=== PATIENT | male | born 1950 | race Caucasian/White ===

== ENCOUNTER 2017-07-18 16:16 | Emergency (ER) | payer MEDICARE, MEDICAID ==
[~2017-07-18] VITALS: Ht 180.3 cm; Wt 90.7 kg
[2017-07-18 16:43] LABS: BASO # 0.1 10*3/uL (0.0-0.1); BASO % 0.8 % (0.0-1.0); EOS # 0.4 10*3/uL (0.0-0.4); EOS % 4.2 % (1.0-4.0); HEMATOCRIT 49.2 % (42.0-52.0); HEMOGLOBIN 15.5 g/dl (14.0-18.0); LYMPH # 2.6 10*3/uL (1.3-4.4); LYMPH % 29.3 % (27.0-41.0); MEAN CELL VOLUME 85.1 fl (80.0-94.0); MEAN CORPUSCULAR HGB 26.8 pg (27.0-31.0); MEAN CORPUSCULAR HGB CONC 31.5 g/dl (33.0-37.0); MONO # 0.9 10*3/uL (0.1-1.0); MONO % 10.3 % (3.0-9.0); NEUT # 4.8 10*3/uL (2.3-7.9); NEUT % 54.9 % (47.0-73.0); PLATELET COUNT AUTOMATED 141 10*3/uL (130-400); RED BLOOD COUNT 5.78 10*6/uL (4.50-5.90); RED CELL DISTRI WIDTH 15.7 % (0-14.5); WHITE BLOOD COUNT 8.8 10*3/uL (4.8-10.8)
[2017-07-18] MEDS ORDERED: ARICEPT5 M1 PO (16:57)
[2017-07-18] MEDS ORDERED: DEPAKOTE500 MG PO (16:58)
[2017-07-18] MEDS ORDERED: ASPIRIN ADULT L81 MG PO (16:58)
[2017-07-18] MEDS ORDERED: VITAMIN D31000 UNI1 PO (16:58)
[2017-07-18] MEDS ORDERED: ATORVASTATIN CA40 M1 PO (16:58)
[2017-07-18] MEDS ORDERED: EFFEXOR XR37.5 M1 PO (16:59)
[2017-07-18] MEDS ORDERED: LASIX40 MG PO (16:59)
[2017-07-18] MEDS ORDERED: LOSARTAN POTASS25 M1 PO (16:59)
[2017-07-18 17:00] LABS: ALBUMIN 3.7 gm/dl (3.1-4.5); ALKALINE PHOSPHATASE 60 U/L (45-117); BUN 22 mg/dl (7-24); CHLORIDE 106 mmol/L (98-107); POTASSIUM 4.1 mmol/L (3.5-5.1); SGOT/AST 20 IU/L (3-35); SGPT/ALT 25 U/L (12-78); SODIUM 139 mmol/L (136-145); TOTAL PROTEIN 7.3 gm/dL (6.4-8.2); VALPROIC ACID (DEPAKENE) 40.6 ug/ml (50-100)
[2017-07-18] MEDS ORDERED: ATENOLOL25 MG PO (17:00)
[2017-07-18] MEDS ORDERED: TAB-A-VITE1 EACH PO (17:00)
[2017-07-18 17:01] LABS: ETHYL ALCOHOL < 3.0 mg/dl (<3)
[2017-07-18] MEDS ORDERED: COLACE100 MG PO (17:02)
[2017-07-18] MEDS ORDERED: 'KLONOPIN0.5 MG PO (17:02)
[2017-07-18 17:07] LABS: THYROID STIM HORMONE (HS) 0.959 uIU/ml (0.358-4.75)
[2017-07-18] MEDS ORDERED: DEPAKOTE250 MG PO (17:08)
[2017-07-18] MEDS ORDERED: NAPROSYN500 MG PO (17:09)
[2017-07-18] MEDS ORDERED: MILK OF MA400 MG/51 PO (17:10)
[2017-07-18 19:27] LABS: BILIRUBIN NEGATIVE (NEGATIVE); BLOOD TRACE-INTACT (NEGATIVE); CLARITY CLEAR (CLEAR); COLOR YELLOW (YELLOW); GLUCOSE NEGATIVE (NEGATIVE); KETONE NEGATIVE (NEGATIVE); LEUKO ESTERASE NEGATIVE (NEGATIVE); NITRITE NEGATIVE (NEGATIVE); SPECIFIC GRAVITY >= 1.030 (1.005-1.030)
[2017-07-18 19:33] LABS: BACTERIA 2+; EPITHELIAL CELLS 0-2; MUCOUS TRACE; RBC 0-2 rbc/hpf (0-2); WBC 0-2 wbc/hpf (0-5)
[2017-07-18 19:36] LABS: URINE AMPHETAMINES < 1000 (1000ng/ml); URINE BARBITURATES < 200 (200ng/ml); URINE BENZODIAZEPINES < 200 (200ng/ml); URINE CANNABINOIDS (THC) < 50 (50ng/ml); URINE COCAINE < 300 (300ng/ml); URINE METHADONE < 300 (300ng/ml); URINE OPIATES < 300 (300ng/ml)
[2017-07-18 19:37] LABS: URINE PHENCYCLIDINE < 25 (25ng/ml)
[2017-07-22] MEDS ORDERED: EXEL13.31 T (20:49)
[2017-07-22] MEDS ORDERED: CYMBALTA30 MG PO (20:52)
[2017-07-22] MEDS ORDERED: INVEGA3 MG PO (20:56)
[2017-07-22] MEDS ORDERED: ATIVAN1 MG PO (20:58)
[2017-07-22] MEDS ORDERED: ATIVAN2 MG/1 ML IM (20:59)
[2017-07-22] MEDS ORDERED: GEODON20 M1 IM (21:00)
== END 2017-07-18 19:40 | disposition other institution (70) ==
LOC: ED 16:16
PROVIDERS: Registered Nurse
DX: F03.91 Unspecified dementia, unspecified severity, with behavioral disturbance (principal); F63.81 Intermittent explosive disorder; I25.2 Old myocardial infarction; F20.9 Schizophrenia, unspecified; E78.5 Hyperlipidemia, unspecified; F41.1 Generalized anxiety disorder; I11.0 Hypertensive heart disease with heart failure; I50.9 Heart failure, unspecified; F17.200 Nicotine dependence, unspecified, uncomplicated; I48.91 Unspecified atrial fibrillation; F14.10 Cocaine abuse, uncomplicated; Z79.899 Other long term (current) drug therapy; Z79.82 Long term (current) use of aspirin; Z88.0 Allergy status to penicillin; Z88.8 Allergy status to other drugs, medicaments and biological substances

== ENCOUNTER 2017-07-22 21:18 | Inpatient (IN) | payer MEDICARE, MEDICAID ==
[~2017-07-22] VITALS: Ht 175.2 cm; Wt 113.4 kg
--- NOTE | ~2017-07-22 | CON ---
[place], [place] REPORT OF CONSULTATION NAME: BUDDY TIPTON UNIT #: [id number] ROOM: 523 DOCTOR: SHANIA GRAY MD BIRTHDATE: [birth year] DOS: 07/23/2017 CHIEF COMPLAINT: "Morning." SUMMARY OF THE VISIT: This is a 67-year-old white male known to me from multiple admissions to the [facility]. The patient had been admitted to the [facility] on July 18 for agitation and aggression at his long-term care facility. In the course of his treatment, he became exceedingly more lethargic and was found to have a significant bradycardia, so he was transferred to a medical floor for further monitoring. Since he has been admitted to the medical floor, his heart rate has been stable, running in the 80s and he has experienced no further symptomatology. MENTAL STATUS: He is alert and oriented to person, more than likely place, not to time. His responses tended to be short and simple and at times totally inappropriate to the questions asked of him. He tended to ramble at times and off into nonsense. There was no agitation or aggression. There was no symptom suggestive of hypomania or too. He does seem to be somewhat psychotic in his thought process. Memory is poor. DIAGNOSES: Schizoaffective disorder and intermittent explosive disorder. PLAN: Once you find him to be medically stable, I would be happy to readmit him back to the [facility] Unit for further stabilization, ultimately returning back to the long-term care facility of record. SHANIA GRAY MD CM:CONSTR:REPORT OF CONSULTATION 1022 07/23/17 1038 interface
[~2017-07-22 21:18] MED LIST: 'KLONOPIN0.5 MG PO; ARICEPT5 M1 PO; ASPIRIN ADULT L81 MG PO; ATENOLOL25 MG PO; ATIVAN1 MG PO; ATIVAN2 MG/1 ML IM; ATORVASTATIN CA40 M1 PO; COLACE100 MG PO; CYMBALTA30 MG PO; DEPAKOTE250 MG PO; DEPAKOTE500 MG PO; EFFEXOR XR37.5 M1 PO; EXEL13.31 T; GEODON20 M1 IM; INVEGA3 MG PO; LASIX40 MG PO; LOSARTAN POTASS25 M1 PO; MILK OF MA400 MG/51 PO; NAPROSYN500 MG PO; TAB-A-VITE1 EACH PO; VITAMIN D31000 UNI1 PO
[2017-07-22 22:20] VITALS: BP 120/82
[2017-07-23] VITALS: BP 135/86
[2017-07-23 05:48] LABS: ALBUMIN 3.6 gm/dl (3.1-4.5); ALKALINE PHOSPHATASE 51 U/L (45-117); BUN 19 mg/dl (7-24); CHLORIDE 105 mmol/L (98-107); CREATININE 0.81 mg/dL (0.70-1.30); PHOSPHOROUS 3.8 mg/dL (2.5-4.9); POTASSIUM 3.8 mmol/L (3.5-5.1); SGOT/AST 25 IU/L (3-35); SGPT/ALT 30 U/L (12-78); SODIUM 140 mmol/L (136-145)
[2017-07-23 05:59] LABS: BASO # 0.1 10*3/uL (0.0-0.1); BASO % 0.9 % (0.0-1.0); EOS # 0.4 10*3/uL (0.0-0.4); EOS % 3.4 % (1.0-4.0); HEMATOCRIT 46.3 % (42.0-52.0); HEMOGLOBIN 14.9 g/dl (14.0-18.0); LYMPH # 2.7 10*3/uL (1.3-4.4); MEAN CELL VOLUME 83.7 fl (80.0-94.0); MEAN CORPUSCULAR HGB 26.9 pg (27.0-31.0); MEAN CORPUSCULAR HGB CONC 32.2 g/dl (33.0-37.0); MEAN PLATELET VOLUME 11.5 fl (9.6-12.3); MONO # 1.4 10*3/uL (0.1-1.0); MONO % 13.3 % (3.0-9.0); NEUT # 5.8 10*3/uL (2.3-7.9); PLATELET COUNT AUTOMATED 127 10*3/uL (130-400); RED BLOOD COUNT 5.53 10*6/uL (4.50-5.90); RED CELL DISTRI WIDTH 15.9 % (0-14.5); WHITE BLOOD COUNT 10.3 10*3/uL (4.8-10.8)
[2017-07-23 08:00] VITALS: BP 110/80
[2017-07-23 12:00] VITALS: BP 100/52
[2017-07-23 16:00] VITALS: BP 149/85
[2017-07-23 20:00] VITALS: BP 136/70
[2017-07-24 04:00] VITALS: BP 139/93
[2017-07-24 07:28] LABS: BUN 19 mg/dl (7-24); CHLORIDE 104 mmol/L (98-107); CREATININE 0.83 mg/dL (0.70-1.30); POTASSIUM 3.8 mmol/L (3.5-5.1); SODIUM 140 mmol/L (136-145)
[2017-07-24 08:00] VITALS: BP 163/84
[2017-07-24 12:00] VITALS: BP 121/74
[2017-07-24] MEDS ORDERED: METOPROLOL SUCC25 M2 PO (14:06)
[2017-07-24] MEDS ORDERED: LISINOPRIL10 M1 PO (14:06)
[2017-07-24 16:00] VITALS: BP 154/93
[2017-07-25] MEDS ORDERED: TOPROL XL25 MG PO (06:46)
== END 2017-07-24 16:46 | disposition home health service (06) | DRG 308 ==
LOC: 5E 21:18
PROVIDERS: Internal Medicine; Internal Medicine Nephrology
DX: I49.3 Ventricular premature depolarization (principal); I50.21 Acute systolic (congestive) heart failure; F01.51 Vascular dementia, unspecified severity, with behavioral disturbance; E66.01 Morbid (severe) obesity due to excess calories; I48.0 Paroxysmal atrial fibrillation; E87.70 Fluid overload, unspecified; I11.0 Hypertensive heart disease with heart failure; F63.81 Intermittent explosive disorder; F20.9 Schizophrenia, unspecified; D72.810 Lymphocytopenia; Z66 Do not resuscitate; Z51.5 Encounter for palliative care; R73.9 Hyperglycemia, unspecified; E78.5 Hyperlipidemia, unspecified; R56.9 Unspecified convulsions; I25.10 Atherosclerotic heart disease of native coronary artery without angina pectoris; R73.03 Prediabetes; I34.0 Nonrheumatic mitral (valve) insufficiency; F41.1 Generalized anxiety disorder; Z72.0 Tobacco use; Z86.73 Personal history of transient ischemic attack (TIA), and cerebral infarction without residual deficits; Z88.0 Allergy status to penicillin; Z88.8 Allergy status to other drugs, medicaments and biological substances; Z79.899 Other long term (current) drug therapy; Z79.82 Long term (current) use of aspirin; I25.2 Old myocardial infarction; Z68.36 Body mass index [BMI] 36.0-36.9, adult

== ENCOUNTER 2017-07-24 17:36 | Inpatient (IN) | payer MEDICARE, MEDICAID ==
[~2017-07-24] VITALS: Ht 175.2 cm; Wt 113.4 kg
--- NOTE | ~2017-07-24 | DS ---
[place], [place] DISCHARGE SUMMARY NAME: BUDDY TIPTON UNIT #: [id number] ROOM: 310 DOCTOR: SHANIA GRAY MD BIRTHDATE: [birth year] DOS: 07/28/2017 CHIEF COMPLAINT: "Morning, I do not want to get up." HISTORY OF PRESENT ILLNESS: This is a 67-year-old white male known to me from his previous admission to the [facility] as well as his stay at [facility]. The patient was initially admitted to the psych unit due to extreme mood lability and verbal and physical aggression; however, he became significantly bradycardic and was transferred off the psychiatric unit to a medical floor for further evaluation. While there, he did have a cardiology service consult and an echo was obtained showing global hypokinesis. Cardiac enzymes were cycled and were negative. He continued to exhibit marked mood issues and continued to be agitated, so he was transferred back to the [facility] for further psychiatric stabilization. PAST MEDICAL HISTORY: Remarkable for atrial fibrillation, CVA, congestive heart failure, coronary artery disease, hypertension, hyperlipidemia, myocardial infarction, obesity, prediabetes, seizure disorder, vitamin D deficiency, dementia, generalized anxiety disorder, and a past history of cocaine abuse. SUMMARY OF HOSPITAL COURSE: The patient was readmitted to the psychiatric unit where his Exelon patch was maxed out to its highest dose of 13.3 mg a day, Namenda 5 mg a day was added to augment the effectiveness of the Exelon. He was maintained on Cymbalta 30 mg at bedtime, both as an antidepressant, a sleep aid and to help with pain. Namenda was rapidly titrated up to its maximum dose of 15 mg a day. With this combination of medication, the patient cleared dramatically. He became much more pleasant and conversant. He was no longer physically or verbally aggressive. He was able to engage in unit activities both individual and group. He was able to attend to his ADLs much more appropriately. He had improved sufficiently enough by July 28 to return to [facility] where I will follow him upon return. MENTAL STATUS AT DISCHARGE: The patient is alert and oriented to self, possibly place, but not time. Mood does seem to be euthymic. Affect is appropriate. There is no too or hypomania. No gross psychotic symptoms. He does process at times slowly and short term memory can be poor. FINAL DIAGNOSES: Major depression, recurrent, severe, and Alzheimer dementia. PLAN: The patient is to return to [facility]. He is medically and psychiatrically stable. [facility] is looking to meet his biopsychosocial needs as well. All of his prescriptions [facility] except for vitamin D, which was printed and will be sent with him. [place], [place] DISCHARGE SUMMARY NAME: BUDDY TIPTON UNIT #: [id number] ROOM: 310 DOCTOR: SHANIA GRAY MD BIRTHDATE: [birth year] SHANIA GRAY MD CM:DISCHARG [id number] SHANIA GRAY MD 07/28/17 1014 interface
--- NOTE | ~2017-07-24 | PR ---
[place], [place] PROGRESS NOTE NAME: BUDDY TIPTON UNIT #: [id number] ROOM: 310 DOCTOR: SHANIA GRAY MD BIRTHDATE: [birth year] DOS: 07/25/2017 CHIEF COMPLAINT: "When do I get to go home. I hope I go home soon." SUMMARY OF THE VISIT: The patient was interviewed in the dining area. He was bright and alert and engaging in conversation readily with me. He did report that he feels better and is anxious to go home. Nurses, however, report they have noticed that he has been wheezing a little bit and complaining of some shortness of breath. His white count is also elevated at 11.9. MENTAL STATUS: The patient is alert and oriented with some time gaps. Mood does seem to be trending towards euthymia. Affect is more appropriate. There is no too or hypomania. There are no psychotic symptoms. Memory for short term events is poor, otherwise, he is intact. PLAN: I will increase Namenda to 5 mg b.i.d. as I targeted 10 mg twice daily dosing to maximize potential benefit. Given his elevated white count and shortness of breath, I will check a chest x-ray and a UA just to make certain we are not dealing with an infectious process. I will defer to the hospitalist for any further workup and treatment. SHANIA GRAY MD CM:PNTRANS [id number] SHANIA GRAY MD 07/26/17 1026 interface
--- NOTE | ~2017-07-24 | PR ---
[place], [place] PROGRESS NOTE NAME: BUDDY TIPTON UNIT #: [id number] ROOM: 310 DOCTOR: SHANIA GRYA MD BIRTHDATE: [birth year] DOS: 07/27/2017 CHIEF COMPLAINT: "I want to be able to go home soon." SUMMARY OF THE VISIT: The patient was interviewed in the dining area. He engaged readily in conversation. He smiled upon approach and stated that he was ready for discharge. He notes that he is sleeping well and eating well and his mood does seem to be trending significantly towards improvement. He has been much more compliant and less agitated. He is tolerating the current medication regimen well. MENTAL STATUS: He is alert and oriented to self, possibly place, but not time. Mood does seem to be strongly trending towards euthymia. He is much more pleasant and cooperative. He engages readily in conversation. He offers no complaints. There is no too or hypomania. There are no overt auditory or visual hallucinations. No delusions, no paranoia. Short term memory has gaps, otherwise he is intact. PLAN: I will increase his Namenda from 5 mg twice a day to 10 mg in the morning and 5 mg at night, continue to engage in individual and mejias milieu activity with the plan to discharge to the least restrictive environment when psychiatrically stable. SHANIA GRAY MD CM:PNTRANS 1 SHANIA GRAY MD 07/27/1712 interface
--- NOTE | ~2017-07-24 | WRIGHTHP ---
[place], [place] PATIENT HISTORY AND PHYSICAL EXAM NAME: BUDDY TIPTON UNIT #: [id number] ROOM: 310 DOCTOR: SHANIA GRAY MD BIRTHDATE: [birth year] DOS: 07/25/2017 PSYCHIATRIC EVALUATION CHIEF COMPLAINT: "Morning. I don't want to get up." HISTORY OF PRESENT ILLNESS: This is a 67-year-old white male known to me from a previous admission here to the [facility] as well as his stay at [facility]. The patient was initially admitted here due to extreme mood lability and verbal and physical aggression; however, he became significantly bradycardic and required transfer off of the unit on to a medical floor. While there, he did have a Cardiology service consult and an echo was obtained, showing global hypokinesis. Cardiac enzymes were cycled and were negative. He continues to exhibit significant mood issues, becoming increasingly agitated at times, requiring redirection and possible PRNs. He is readmitted now to stabilize on medication to further engage in individual and mejias milieu activity with the plan to return back to the long-term care facility when stable. PAST MEDICAL HISTORY: Remarkable for atrial fibrillation and CVA, congestive heart failure, coronary artery disease, hypertension, hyperlipidemia, myocardial infarction, obesity, prediabetes, seizure disorder, vitamin D deficiency, cocaine abuse, dementia, generalized anxiety disorder. MENTAL STATUS: The patient is alert and oriented to self. His responses this morning were short and simple at times, he ignored me. Other times, he would answer appropriately. He tended to drift off into responses and at times like I had previously said that they were nonsensical. There was no agitation; however, this morning, no overt auditory or visual hallucinations. He does process extremely slow and short term memory is exceedingly poor. PLAN: I will go ahead and augment the Exelon patch with Namenda 5 mg a day, planning to gradually titrate this upward as needed and as tolerated. We will continue to engage in individual and mejias milieu activity with the ultimate plan to return back to [facility] with similar placement when stable. [place], [place] PATIENT HISTORY AND PHYSICAL EXAM NAME: BUDDY TIPTON UNIT #: [id number] ROOM: 310 DOCTOR: SHANIA GRAY MD BIRTHDATE: [birth year] SHANIA GRAY MD CM:CHANCE:PATIENT HISTORY AND PHYSICAL EXAMINATION [id number] SHANIA GRAY MD 07/25/17 0853 interface
[2017-07-24 16:55] VITALS: BP 108/64
[~2017-07-24 17:36] MED LIST changes: +LISINOPRIL10 M1 PO; +METOPROLOL SUCC25 M2 PO
[2017-07-24 18:30] VITALS: BP 108/64
[2017-07-24 21:36] VITALS: BP 146/73
[2017-07-25] MEDS ORDERED: TOPROL XL25 MG PO (06:46)
[2017-07-25 07:33] VITALS: BP 144/60
[2017-07-25 10:15] VITALS: BP 138/82
[2017-07-25 20:00] VITALS: BP 140/66
[2017-07-26 06:41] LABS: BASO # 0.1 10*3/uL (0.0-0.1); BASO % 0.7 % (0.0-1.0); EOS # 0.1 10*3/uL (0.0-0.4); EOS % 0.5 % (1.0-4.0); HEMOGLOBIN 15.4 g/dl (14.0-18.0); LYMPH % 25.6 % (27.0-41.0); MEAN CELL VOLUME 81.2 fl (80.0-94.0); MEAN CORPUSCULAR HGB 26.6 pg (27.0-31.0); MEAN CORPUSCULAR HGB CONC 32.8 g/dl (33.0-37.0); MEAN PLATELET VOLUME 10.7 fl (9.6-12.3); MONO # 1.1 10*3/uL (0.1-1.0); MONO % 9.4 % (3.0-9.0); NEUT # 7.5 10*3/uL (2.3-7.9); NEUT % 63.5 % (47.0-73.0); PLATELET COUNT AUTOMATED 161 10*3/uL (130-400); RED BLOOD COUNT 5.79 10*6/uL (4.50-5.90); RED CELL DISTRI WIDTH 15.1 % (0-14.5); WHITE BLOOD COUNT 11.9 10*3/uL (4.8-10.8)
[2017-07-26 07:15] LABS: ALBUMIN 3.8 gm/dl (3.1-4.5); ALKALINE PHOSPHATASE 58 U/L (45-117); BUN 15 mg/dl (7-24); CHLORIDE 103 mmol/L (98-107); CREATININE 0.78 mg/dL (0.70-1.30); SGOT/AST 20 IU/L (3-35); SGPT/ALT 35 U/L (12-78); SODIUM 136 mmol/L (136-145); TOTAL PROTEIN 7.6 gm/dL (6.4-8.2)
[2017-07-26 08:04] VITALS: BP 109/55; BP 138/82
[2017-07-26 12:56] LABS: BILIRUBIN NEGATIVE (NEGATIVE); BLOOD NEGATIVE (NEGATIVE); CLARITY SL CLOUDY (CLEAR); COLOR YELLOW (YELLOW); GLUCOSE NEGATIVE (NEGATIVE); KETONE NEGATIVE (NEGATIVE); LEUKO ESTERASE NEGATIVE (NEGATIVE); NITRITE NEGATIVE (NEGATIVE)
[2017-07-26 13:02] LABS: MUCOUS 2+
[2017-07-26 20:24] VITALS: BP 138/52
[2017-07-27 07:39] VITALS: BP 126/83
[2017-07-27 19:40] VITALS: BP 140/74
[2017-07-28 07:36] VITALS: BP 132/72
[2017-07-28] MEDS ORDERED: Vitamin D PO (09:52)
[2017-07-28] MEDS ORDERED: NAMENDA-5 PO (09:52)
[2017-07-28] MEDS ORDERED: EXELON13.3 MG/21 T (09:52)
[2017-07-28] MEDS ORDERED: DULOXETINE HCL30 MG PO (09:52)
[2017-07-28] MEDS ORDERED: MEMANTINE HCL10 MG PO (09:52)
[2017-07-28] MEDS ORDERED: PALIPERIDONE ER3 MG PO (09:52)
[2017-07-28] MEDS ORDERED: ALDACTONE25 MG PO (10:56)
[2017-07-28] MEDS ORDERED: FUROSEMIDE20 M1 PO (10:56)
== END 2017-07-28 15:20 | disposition other institution (70) | DRG 885 ==
LOC: 3N 17:36
PROVIDERS: Emergency Medicine; Psychiatry & Neurology Psychiatry
DX: F33.2 Major depressive disorder, recurrent severe without psychotic features (principal); E66.01 Morbid (severe) obesity due to excess calories; I48.0 Paroxysmal atrial fibrillation; I50.9 Heart failure, unspecified; I11.0 Hypertensive heart disease with heart failure; G40.909 Epilepsy, unspecified, not intractable, without status epilepticus; E55.9 Vitamin D deficiency, unspecified; E78.5 Hyperlipidemia, unspecified; F02.81 Dementia in other diseases classified elsewhere, unspecified severity, with behavioral disturbance; I50.22 Chronic systolic (congestive) heart failure; F23 Brief psychotic disorder; G30.9 Alzheimer's disease, unspecified; R73.03 Prediabetes; F41.1 Generalized anxiety disorder; F17.210 Nicotine dependence, cigarettes, uncomplicated; I25.10 Atherosclerotic heart disease of native coronary artery without angina pectoris; E66.9 Obesity, unspecified; Z86.73 Personal history of transient ischemic attack (TIA), and cerebral infarction without residual deficits; I25.2 Old myocardial infarction; Z88.0 Allergy status to penicillin; Z88.8 Allergy status to other drugs, medicaments and biological substances; Z79.82 Long term (current) use of aspirin; Z79.899 Other long term (current) drug therapy; Z68.36 Body mass index [BMI] 36.0-36.9, adult